=== PATIENT | male | born 1970 | race Caucasian/White ===

== ENCOUNTER 2020-09-29 06:45 | Day surgery (SDC) | payer BC ==
[~2020-09-29 06:45] MED LIST: Lactated Ringers 1,000 ML IV SCH; Sodium Chloride 0.9% 10 ML Syringe FLUSH PRN
[2020-09-29] MEDS ORDERED: Midazolam 1 MG/ML 2 ML SDV IV ONE (06:46)
[2020-09-29] MEDS ORDERED: Propofol 200 MG/20 ML SDV IV ONE (06:46)
--- NOTE | 2020-09-29 08:17 | PCM.PN ---
- General Info Date of Service: 09/29/20 - Review of Systems Systems Review Comment:: 50 y/o male here for his first colonoscopy. He denies any recent bowel changes. His recent H and P is reviewed and no significant changes are noted. I have discussed the proposed colonoscopy with the patient. Risks such as but not limited to bleeding and GI injury discussed and he agrees to proceed. - Patient Data Vitals - Most Recent: Last Vital Signs Temp 99.0 F 09/29/20 07:27 Pulse 68 09/29/20 07:27 Resp 16 09/29/20 07:27 BP 147/93 H 09/29/20 07:27 Pulse Ox 96 09/29/20 07:27 Weight - Most Recent: 155 lb 13.869 oz Med Orders - Current: Current Medications Lactated Ringer's (Ringers, Lactated) 1,000 mls @ 125 mls/hr IV ASDIRECTED LULÚ Last Admin: 09/29/20 07:17 Dose: 125 mls/hr Documented by: Sodium Chloride (Sodium Chloride 0.9% 10 Ml Syringe) 10 ml FLUSH ASDIRECTED PRN PRN Reason: Keep Vein Open Sepsis Event Note - Focused Exam Vital Signs: Vital Signs Temp Pulse Resp BP Pulse Ox 09/29/20 07:27 99.0 F 68 16 147/93 H 96 - Problem List Review Problem List Initiated/Reviewed/Updated: Yes - My Orders Last 24 Hours: My Active Orders 09/29/20 Breakfast Nothing Per Oral Diet [DIET] 09/29/20 06:45 Patient Status [ADT] Routine Patient to Empty Bladder [RC] ASDIRECTED Verify Patient Consent Obtain [RC] ASDIRECTED Lactated Ringers [Ringers, Lactated] 1,000 ml IV ASDIRECTED Sodium Chloride 0.9% [Saline Flush] 10 ml FLUSH ASDIRECTED PRN Peripheral IV Insertion Adult [OM.PC] Routine - Assessment Assessment:: Colon Cancer Screening - Plan Plan:: Colonoscopy
--- NOTE | 2020-09-29 08:54 | PCM.OPNOTE ---
- General Post-Op/Procedure Note Date of Surgery/Procedure: 09/29/20 Operative Procedure(s): Colonoscopy with Polypectomy Findings: Small polyps in rectum and cecum Pre Op Diagnosis: Colon Cancer Screening Post-Op Diagnosis: Colon Polyps Anesthesia Technique: MAC Primary Surgeon: Onofre Cross Pathology: Colon Polyps EBL in mLs: 0 Complications: None Condition: Good
--- NOTE | 2020-09-29 11:16 | OR ---
DATE OF OPERATION: 09/29/2020 SURGEON: Onofre Cross MD PREOPERATIVE DIAGNOSIS: Colon cancer screening. POSTOPERATIVE DIAGNOSIS: Colon polyps. OPERATION PERFORMED: Colonoscopy with polypectomy. INDICATIONS FOR SURGERY: This 50-year-old male is here for his initial screening colonoscopy. He denies any recent changes in bowel pattern. FINDINGS: Two polyps are noted on today's exam. There is a 6 mm semipedunculated polyp in the cecum 5 mm from the anal verge. There is a 4 mm sessile polyp in the cecum. The remainder of the colon and rectum appeared normal. PROCEDURE IN DETAIL: The patient was taken to the procedure room. He was given intravenous sedation, and with him in the left lateral decubitus position, digital rectal exam was performed showing no rectal masses. The Olympus colonoscope was inserted into the rectum. Retroflexed examination of the rectal canal was performed. The rectal polyp was identified and removed with a cautery snare and retrieved into a polyp trap. The scope was then carefully advanced under direct visualization through the entire length of the colon until the cecum was reached. Cecal acquisition was confirmed by noting the normal internal cecal anatomy including the appendiceal orifice and the ileocecal valve. The light was also noted to transilluminate the abdominal wall in the right lower quadrant. In the cecum, the above-described small polyp was identified. This was removed with a cautery snare and retrieved. Examination was then continued as the scope was withdrawn, sequentially re-examining the colonic segments. Once the entire colon and rectum had been fully examined, the scope was removed and the patient was taken from the procedure room in satisfactory condition. ESTIMATED BLOOD LOSS: Zero. COMPLICATIONS: None. PROGNOSIS: Good. /[id number] SARAH/JOSH
== END 2020-09-29 09:33 | disposition home or self-care (01) ==
LOC: FB.SDS 06:45
PROVIDERS: ATTEND Surgery
DX: Z12.11 Encounter for screening for malignant neoplasm of colon (principal); D12.8 Benign neoplasm of rectum; K63.5 Polyp of colon; Z79.899 Other long term (current) drug therapy; Z87.891 Personal history of nicotine dependence
CPT/HCPCS: 00813-QZ; 88305; J2250; J2704; J7120